=== PATIENT | male | born 1975 | race Caucasian/White ===

== ENCOUNTER 2020-05-26 09:23 | Outpatient (CLI) | payer OTHER, SELFPAY ==
--- NOTE | ~2020-05-26 | US_ITS ---
US abdomen complete DATE: 05/26/2020 10:27 INDICATION: Elevated serum enzyme levels TECHNIQUE: Real-time imaging and Doppler analysis of the abdomen COMPARISON: None FINDINGS: The pancreas is not optimally evaluated due to interference from overlying bowel gas. Consi reyna CT abdomen examination for more optimal pancreatic visualization. There is hepatic steatosis. No hepatic space-occupying mass lesion is evident. There is a hyperechoic shadowing filling defect of the neck of the gallbladder, measuring up to 2 cm approximate dimension. It is not mobile. There is borderline gallbladder wall thickening. No perichol ecystic abnormal fluid collection is evident. Negative sonographic Presley's sign. The common bile duct measures 4.5 mm, within normal range. The right kidney measures 10.3 cm length. The left kidney measures 10.9 cm length. No renal mass lesi on or hydronephrosis is evident. Spleen measures within normal limits for size, 12.5 cm length. Normal caliber of the abdominal aorta. Inferior vena cava is unremarkable. IMPRESSION: 2 cm gallstone fixed in position at gallbladder neck; borderline gallbladder wall thicken ing Reviewed, dictated and finalized at [facility]. Reviewed, dictated and finalized at location [facility]. IMPRESSION: 2 cm gallstone fixed in position at gallbladder neck; borderline ga llbladder wall thickening
== END 2020-05-26 09:24 | disposition home or self-care (01) ==
PROVIDERS: PCP Family Medicine; Visit Provider Nurse Practitioner
DX: R74.8 Abnormal levels of other serum enzymes (principal); K80.20 Calculus of gallbladder without cholecystitis without obstruction
CPT/HCPCS: 76700

== ENCOUNTER 2021-11-05 09:29 | Outpatient (CLI) | payer OTHER, SELFPAY | END 2021-11-05 09:30 | disposition home or self-care (01) | LOC: ANHGOSHLAB 09:31 | PROVIDERS: PCP Family Medicine; Visit Provider Nurse Practitioner | DX: E55.9 Vitamin D deficiency, unspecified (principal); E78.5 Hyperlipidemia, unspecified; I10 Essential (primary) hypertension | CPT/HCPCS: 36415 ==

== ENCOUNTER 2022-05-11 11:40 | Outpatient (CLI) | payer OTHER, SELFPAY ==
[2022-05-11 12:36] LABS: Basophils Absolute Auto 0.1 K/mm3 (0.0-0.1); Basophils Percent Auto 0.6 % (0.2-1.2); Eosinophils Absolute Auto 0.2 K/mm3 (0-0.3); Eosinophils Percent Auto 1.7 % (0-4.4); Hematocrit 49.1 % (42.0-52.0); Hemoglobin 16.9 g/dL (14.0-18.0); Immature Granulocyte Absolute 0.04 K/mm3 (0.00-0.031); Immature Granulocyte Percent A 0.4 % (0-0.5); Lymphocytes Absolute Auto 2.52 K/mm3 (0.9-3.2); Lymphocytes Percent Auto 24.4 % (18.3-44.2); Mean Corpuscular HGB Conc 34.4 g/dl (32-36); Mean Corpuscular Hemoglobin 31.2 pg (26-34); Mean Corpuscular Volume 90.6 fl (80-100); Mean Platelet Volume 10.5 fl (7.4-10.4); Monocytes Absolute Auto 0.6 K/mm3 (0.1-0.6); Monocytes Percent Auto 5.6 % (2.6-8.5); Neutrophils Absolute Auto 6.9 K/mm3 (1.3-6.7); Neutrophils Percent Auto 67.3 % (45.5-73.1); Platelet Count Result 284 k/mm3 (150-375); Red Blood Count 5.42 M/mm3 (4.6-6.20); White Blood Count 10.3 K/mm3 (4.5-10.0)
[2022-05-11 12:38] LABS: Alanine Aminotransferase 99 U/L (6-50); Albumin Level 4.7 g/dL (3.5-5.1); Alkaline Phosphatase 77 U/L (38-126); Anion Gap 6 mmol/L (8-16); Aspartate Amino Transferase 59 U/L (17-59); Blood Urea Nitrogen 15 mg/dL (9-20); Carbon Dioxide 31 mmol/L (22-30); Chloride 103 mmol/L (98-107); Cholesterol 219 mg/dL (0-200); Estimated Glomerular Filt Rate > 60; Glucose 98 mg/dL (65-110); HDL Direct 51 mg/dL; Sodium 140 mmol/L (137-145); Triglycerides 147 mg/dL (<150)
[2022-05-11 12:49] LABS: LDL Cholesterol Direct 116 mg/dL
== END 2022-05-11 11:41 | disposition home or self-care (01) ==
LOC: ANHGOSHLAB 11:41
PROVIDERS: PCP Family Medicine; Visit Provider Nurse Practitioner
DX: E78.5 Hyperlipidemia, unspecified (principal); I10 Essential (primary) hypertension
CPT/HCPCS: 36415; 80053; 80061; 85025

== ENCOUNTER 2022-09-16 02:13 | Observation (INO) | payer OTHER, SELFPAY ==
[2022-09-16] VITALS (17 sets, daily range): BP systolic 128–159; BP diastolic 85–110; PULSE 59–75; RESP 14–25; TEMP 36.2–36.4; O2SAT 95–100; BMI 28.0
--- NOTE | ~2022-09-16 | NM_ITS ---
EXAMINATION: NM hepatobiliary w pharm DATE: 09/16/2022 13:22 INDICATION: Right upper quadrant abdominal pain and cholelithiasis. COMPARISON: CT dated 09/16/2022 TECHNIQUE: 5.1 mCi Tc-99m mebrofenin (Choletec) was administered intravenously. Scintigraphic images of the abdomen were obtained for one hour. Additional 30 minutes of imaging was acquired following a dministration of 2 mg IV morphine. FINDINGS: There is normal clearance of radiotracer from the blood pool. There is homogeneous tracer uptake by t he liver. Activity progresses to the common bile duct by 15 minutes and into the small bowel by 20 m inutes. There is no evident activity within the gallbladder either prior to or in the 30 minutes foll owing morphine administration which would be consistent with acute cholecystitis. IMPRESSION: 1. No evident gallbladder activity either prior to or following morphine administration which could be consistent with acute cholecystitis. Reviewed, dictated and finalized at location [facility]. IMPRESSION: 1. No evident gallbladder activity either prior to or following morphine admin istration which could be consistent with acute cholecystitis.
--- NOTE | ~2022-09-16 | CT_ITS ---
CT of the Abdomen and Pelvis: Indication: Abdominal pain Technique: 2.5 mm axial scans were obtained through the abdomen and pelvis following intravenous adm inistration of 100 cc of Omnipaque 350. Dose reduction technique was used on this scan by utilizing a utomated exposure control and iterative reconstruction technique. The dose-length product (DLP) was 1 022.58 mGy-cm. Findings: Scans through the lung bases are unremarkable. The liver, spleen, pancreas, adrenals and kidneys are within normal limits. 3.2 cm calcified gallston e present. No evidence of aortic aneurysm. No lymphadenopathy. No bowel obstruction or bowel wall thickening. There is no evidence to suggest acute appendicitis. Images through the pelvis were performed. Urinary bladder unremarkable. Prostate gland and seminal ve sicles are unremarkable. No ascites. Impression: Cholelithiasis. Reviewed, dictated and finalized at location . Impression: Cholelithiasis.
[2022-09-16 02:44] LABS: Basophils Absolute Auto 0.1 K/mm3 (0.0-0.1); Basophils Percent Auto 0.8 % (0.2-1.2); Eosinophils Absolute Auto 0.1 K/mm3 (0-0.3); Eosinophils Percent Auto 1.5 % (0-4.4); Hematocrit 48.2 % (42.0-52.0); Hemoglobin 16.7 g/dL (14.0-18.0); Immature Granulocyte Absolute 0.04 K/mm3 (0.00-0.031); Immature Granulocyte Percent A 0.4 % (0-0.5); Lymphocytes Absolute Auto 2.58 K/mm3 (0.9-3.2); Lymphocytes Percent Auto 27.9 % (18.3-44.2); Mean Corpuscular HGB Conc 34.6 g/dl (32-36); Mean Corpuscular Hemoglobin 31.1 pg (26-34); Mean Corpuscular Volume 89.8 fl (80-100); Mean Platelet Volume 9.9 fl (7.4-10.4); Monocytes Absolute Auto 0.6 K/mm3 (0.1-0.6); Monocytes Percent Auto 6.2 % (2.6-8.5); Neutrophils Absolute Auto 5.8 K/mm3 (1.3-6.7); Neutrophils Percent Auto 63.2 % (45.5-73.1); Platelet Count Result 284 k/mm3 (150-375); Red Blood Count 5.37 M/mm3 (4.6-6.20); Red Cell Distribution Width 11.9 % (11.5-14.5); White Blood Count 9.2 K/mm3 (4.5-10.0)
[2022-09-16 02:55] LABS: Alanine Aminotransferase 92 U/L (6-50); Albumin Level 4.7 g/dL (3.5-5.1); Alkaline Phosphatase 80 U/L (38-126); Anion Gap 12 mmol/L (8-16); Aspartate Amino Transferase 42 U/L (17-59); Bilirubin,Total 0.4 mg/dL (0.2-1.3); Blood Urea Nitrogen 12 mg/dL (9-20); Calcium 9.5 mg/dL (8.4-10.2); Carbon Dioxide 25 mmol/L (22-30); Chloride 103 mmol/L (98-107); Estimated CRCL calculation 78 ml/min; Estimated Glomerular Filt Rate > 60; Glucose 151 mg/dL (65-110); Lipase 114 U/L (23-300); Potassium 3.5 mmol/L (3.4-5.0); Sodium 140 mmol/L (137-145)
[2022-09-16] MEDS: ONDANSETRON INJ 4 MG/2 ML VIAL IV PUSH (04:23)
[2022-09-16] MEDS: MORPHINE SULFATE (*CRX) 4 MG/ML INJ IV PUSH (04:24)
[2022-09-16] MEDS: FAMOTIDINE 20 MG/2 ML VIAL IV PUSH ×2 (04:26→08:30)
[2022-09-16 04:37] LABS: Appearance Urine Clear (Clear); Bilirubin Urine Negative (Negative); Blood Urine Negative (Negative); Color Urine Yellow (Yellow); Glucose Urine UA Negative (Negative); Ketones Urine Negative (Negative); Leukocyte Esterase Ur Negative LEU/UL (Negative); Nitrate Urine Negative (Negative); Protein Urine Negative (Negative); Urobilinogen Urine 0.2 mg/dL (<2.0)
--- NOTE | 2022-09-16 04:46 | ED.ABDPAIN ---
HPI - Abdominal Pain General Chief Complaint: Abdominal Pain Stated Complaint: abd pain Time Seen by Provider: 09/16/22 02:25 History of Present Illness HPI narrative: 47-year-old male with history of gallbladder issues presents with pain in his right upper quadrant, nausea vomiting, he states that he he had accidentally eaten 2 meals tonight Related Data Allergies Allergy/AdvReac Type Severity Reaction Status Date / Time No Known Allergies Allergy Verified 05/11/22 11:10 Review of Systems Review of Systems: CONST: No fever. HEENT: No sore throat C/V: No chest pain RESP: No cough GI: Reports abdominal pain, nausea, vomiting : No dysuria. M/S: No joint pain. SKIN: No rash. NEURO: [No headache or focal numbness or weakness] PSYCH: [No depression] [facility] Past Medical History Medical History Essential (primary) hypertension Gallstones GERD (gastroesophageal reflux disease) Low vitamin D level Surgical History Surgical History History of hernia surgery umblical hernia repair 2017 History of tonsillectomy and adenoidectomy History of vasectomy [place] teeth extracted Family History Family History Father Hypertension Sibling Hypertension Social History Social History Smoking packs per day: 0.5 Smoking cigarettes per day: 10.0 Smoking status: Current every day smoker Tobacco type: cigarettes Second hand tobacco smoke exposure: No Alcohol intake: current Drinks per week: 50 Alcohol use details: 25 beers weekly Substance use: current Substance use type: marijuana Lack of Transportation: No Lack of Food: Never True Current Housing: I Have Housing Concerned About Future Housing: No Difficulty Paying Gas/Electric Bills: No Difficulty Paying for Meds: No Currently Unemployed: No Education: High School Diploma/GED Difficulty w/ Childcare or Family Care: No Living arrangements: with roommate(s) Occupation/Education: occupation 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 EYES: EOMI, conjunctiva normal ENT: Hearing grossly intact LUNGS: Nonlabored breathing. HEART: [Regular rate and rhythm] ABD: [Soft], [tender to palpation] right upper quad EXT: Normal range of motion SKIN: [No rashes or lesions.] NEURO: [Alert and oriented x 3. No gross focal sensory or strength deficits.] PSYCH: Normal affect Course Vital Signs Vital signs: Vital Signs Temperature 97.1 F L 09/16/22 02:15 Pulse Rate 69 09/16/22 02:15 Respiratory Rate 16 09/16/22 02:15 Blood Pressure 148/90 H 09/16/22 02:15 Pulse Oximetry 100 09/16/22 02:15 Oxygen Delivery Room Air 09/16/22 02:15 Temperature 97.3 F L 09/16/22 05:54 Pulse Rate 64 09/16/22 05:54 Respiratory Rate 20 09/16/22 05:54 Blood Pressure 140/106 H 09/16/22 05:54 Pulse Oximetry 96 09/16/22 05:54 Oxygen Delivery Room Air 09/16/22 02:15 MDM - Abdominal Pain MDM Narrative Medical decision making narrative: Electronic medical record was reviewed. Patient presented to the ED with complaint of [abdominal pain and vomiting]. Vitals [were within acceptable limits]. Physical exam revealed tenderness to palpation right upper quadrant. Based on the patient's history and physical exam, my differential includes but is not limited to [gastritis, gastroenteritis, cholecystitis, pancreatitis]. [IV access was established by nursing staff. Patient was given zofran, morphine, famotidine]. CBC, BMP, lipase, LFTs, bilirubin and alk phos were obtained. Labs were pertin
[2022-09-16 04:58] LABS: Add Urine Microscopic? NO
--- NOTE | 2022-09-16 05:51 | ADMGEN ---
This patient, Hugo Del Rio, was admitted to Medical Room 250-01. Patient/family oriented to hospital policies and general routines including ID bracelet, bed and alarms, visiting hours, pain management, procedures, bathroom and other care routines, personal items, smoking policy, room service/diet, and visiting hours. Information on how to activate the Rapid Response Team has been discussed. Patient/Family are encouraged to report perceived risks to care and to ask questions if they do not understand what they are told or what they should do.
--- NOTE | 2022-09-16 07:29 | PM.IMHP ---
H&P: HPI History of Present Illness Date/Time: 09/16/22 07:29 Chief Complaint: Abdominal pain Narrative: This is a 47-year-old male with a past medical history of hypertension and EtOH abuse. He presented to [place] [facility] last night with complaints of abdominal pain located to his right upper quadrant. 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 Around 3:00 p.m. he ate some tacos and then when his came home at 5 she woke him up and he ate another meal. Shortly after that he started feeling bloated and like he ate too much food. He admits he was still intoxicated at this point. Around 10:00 p.m. he started to have right upper quadrant pain which radiated to his back. The pain progressively became worse and he became nauseous. He tried to take some ibuprofen but that did not help. Finally around 2:00 a.m. he decided to come to the ER. He says that he has had multiple episodes like this before but never this bad. These episodes happen about once a year and he even saw a Dr. Surya Reeves within the last year for potential outpatient cholecystectomy. His CT abdomen and pelvis in the ER shows cholelithiasis. A HIDA scan has been ordered for today 11. His labs are mostly unremarkable with a mild elevation of his ALT at 92. Lipase was normal 114. He reports that he drinks at least 9 beers a day, probably more. He states that he does notice tremors when he has not had a drink drink for a while. He is a 30 year, half a pack-a-day smoker and occasionally takes edibles. During his assessment he appears comfortable in bed. He states that his pain is much better than when he initially presented to the ER. He no longer appears to be intoxicated. He answers questions appropriately. He says that his pain was right upper quadrant is just a mild tenderness at this point, and no Presley sign present. He has been NPO and denies nausea. Will proceed with HIDA scan and general surgery consult. Anticipate outpatient follow-up with surgery for lap cholecystectomy. Review of Systems Review of Systems: All systems reviewed & are unremarkable except as noted in HPI and below PMFSH Past Medical History Medical History Essential (primary) hypertension Gallstones GERD (gastroesophageal reflux disease) Low vitamin D level Surgical History Surgical History History of hernia surgery umblical hernia repair 2017 History of tonsillectomy and adenoidectomy History of vasectomy [place] teeth extracted Family History Family History Father Hypertension Sibling Hypertension Social History Social History (Updated 09/16/22 @ 10:41 by Clementina Lentz APRN) Smoking packs per day: 0.5 Smoking cigarettes per day: 10.0 Smoking status: Current every day smoker Tobacco type: cigarettes Second hand tobacco smoke exposure: No Alcohol intake: current Drinks per week: 63 Alcohol use details: 9 beers a day, probably more per patient Substance use: current Substance use type: marijuana Other substance usage details: weekly edibles Lack of Transportation: No Lack of Food: Never True Current Housing: I Have Housing Concerned About Future Housing: No Difficulty Paying Gas/Electric Bills: No Difficulty Paying for Meds: No Currently Unemployed: No Education: High School Diploma/GED Difficulty w/ Childcare or Family Care: No Living arrangements: with family Occupation/Education: occupation 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
[2022-09-16] MEDS: hydroCHLOROthiazide 12.5 MG CAPSULE PO (08:30)
[2022-09-16] MEDS: amLODIPine BESYLATE 5 MG TABLET 10 MG PO (08:30)
[2022-09-16] MEDS: LACTATED RINGERS 1,000 ML 75 ML IV CONT (08:36)
[2022-09-16] MEDS: MORPHINE SULFATE (*CRX) 2 MG/ML INJ IV PUSH (12:49)
[2022-09-16 13:36] LABS: Glucose Point of Care 108 mg/dl (65-105)
[2022-09-16 18:07] LABS: Glucose Point of Care 95 mg/dl (65-105)
--- NOTE | 2022-09-18 06:47 | PM.DS ---
DS: Admitting Diagnosis Discharge Date 09/16/22 Admitting Diagnosis abdominal pain DS: Discharge Diagnosis Discharge Diagnosis (1) Abdominal pain, RUQ: Code(s): R10.11 - Right upper quadrant pain Status: Acute Assessment and Plan: -Likely related to cholelithiasis, also a heavy drinker although lipase was normal -mildly elevated liver enzymes -await HIDA scan results -IVF -NPO -Prn pain medications -Advance diet when appropriate (2) Essential (primary) hypertension: Code(s): I10 - Essential (primary) hypertension Status: Acute Assessment and Plan: Stable on home medications -Will restart now -Blood pressures reviewed and are stable (3) GERD (gastroesophageal reflux disease): Qualifiers: Esophagitis presence: without esophagitis Qualified Code(s): K21.9 - Gastro-esophageal reflux disease without esophagitis Code(s): K21.9 - Gastro-esophageal reflux disease without esophagitis Status: Acute Assessment and Plan: On Rapeprazole 20 mg daily at home -Placed on pepcid IVP BID (4) Alcohol abuse: Code(s): F10.10 - Alcohol abuse, uncomplicated Status: Acute Assessment and Plan: Approximately 9-12 beers per day. Reports of tremors with cessation. -CIWA with prn Ativan and Librium -Counseled on cessation -Folic acid and B1 replacement ordered -care coordination consult Plan -await results from HIDA scan -may consult surgery depending on results, otherwise will schedule outpatient follow up for lap luiz -NPO, IVF, may trial diet later this afternoon -CIWA DS: Summary Hospital Course Hospital Course: Narrative: This is a 47-year-old male with a past medical history of hypertension and EtOH abuse.? He presented to [place] ER last night with complaints of abdominal pain located to his right upper quadrant.? 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 Around 3:00 p.m. he ate some tacos and then when his came home at 5 she woke him up and he ate another meal.? Shortly after that he started feeling bloated and like he ate too much food.? He admits he was still intoxicated at this point.? Around 10:00 p.m. he started to have right upper quadrant pain which radiated to his back.? The pain progressively became worse and he became nauseous.? He tried to take some ibuprofen but that did not help.? Finally around 2:00 a.m. he decided to come to the ER.? He says that he has had multiple episodes like this before but never this bad.? These episodes happen about once a year and he even saw a Dr. Surya Reeves within the last year for potential outpatient cholecystectomy.? His CT abdomen and pelvis in the ER shows cholelithiasis.? A HIDA scan has been ordered for today 11.? His labs are mostly unremarkable with a mild elevation of his ALT at 92.? Lipase was normal 114.? He reports that he drinks at least 9 beers a day, probably more.? He states that he does notice tremors when he has not had a drink drink for a while.? He is a 29 year, half a pack-a-day smoker and occasionally takes edibles. During his assessment he appears comfortable in bed.? He states that his pain is much better than when he initially presented to the ER.? He no longer appears to be intoxicated.? He answers questions appropriately.? He says that his pain was right upper quadrant is just a mild tenderness at this point, and no Presley sign present.? He has been NPO and denies nausea.? Will proceed with HIDA scan and general surgery consult.? Anticipate outpatient follow-up with surgery for lap cholecystectomy. Time Spent with Patient Time attestation: Total time spent providing and/or coordinating discharge services:32 Exam Narrative: General: well-nourished, well-appearing 47-year-old male, sitting up in bed, comfortable, NARD Neuro: awake, alert and oriented x4, speech c
== END 2022-09-16 18:40 | disposition home or self-care (01) ==
LOC: ANHED 02:36 → ANH2MED 05:22
PROVIDERS: Admitting Provider Internal Medicine; Emergency Provider Emergency Medicine; PCP Family Medicine; Visit Provider Internal Medicine
DX: R10.11 Right upper quadrant pain (principal); I10 Essential (primary) hypertension; K21.9 Gastro-esophageal reflux disease without esophagitis; F17.210 Nicotine dependence, cigarettes, uncomplicated; F12.90 Cannabis use, unspecified, uncomplicated; F10.10 Alcohol abuse, uncomplicated; Z79.899 Other long term (current) drug therapy
CPT/HCPCS: 36415; 74177; 78227; 80053; 81003; 82948; 83690; 85025; 96361; 96374; 96375; 96376; 99285; A9270; A9537; G0378; J2270; J2405; J7120; Q9967

== ENCOUNTER 2022-10-27 08:36 | Outpatient (CLI) | payer OTHER, SELFPAY ==
--- NOTE | 2022-10-27 08:30 | ECG_ITS ---
Measurements Intervals [place] Rate: 83 P: 20 AK: 167 QRS: 45 QRSD: 117 T: 46 QT: 372 QTc: 438 Interpretive Statements SINUS RHYTHM INCOMPLETE RIGHT BUNDLE BRANCH BLOCK CONSIDER INFERIOR INFARCT, AGE INDETERMINATE BASELINE ARTIFACT- I, III, AVR, AVL, AVF ABNORMAL ECG NO PREVIOUS ECG AVAILABLE FOR COMPARISON Electronically Signed On 10-27-2022 9:17:30 CDT by J Luis Cottrell D.O.
[2022-10-27 10:08] LABS: Amylase 52 U/L (30-110)
== END 2022-10-27 08:37 | disposition home or self-care (01) ==
LOC: ANHSURGERY 08:39
PROVIDERS: PCP Family Medicine; Visit Provider Surgery
DX: K80.10 Calculus of gallbladder with chronic cholecystitis without obstruction (principal); I10 Essential (primary) hypertension; Z01.818 Encounter for other preprocedural examination; I45.10 Unspecified right bundle-branch block
CPT/HCPCS: 36415; 82150; 86850; 86900; 86901; 93005

== ENCOUNTER 2023-01-22 08:47 | Outpatient (CLI) | payer OTHER, SELFPAY ==
[2023-01-22 09:26] LABS: Alanine Aminotransferase 116 U/L (6-50); Albumin Level 4.5 g/dL (3.5-5.1); Alkaline Phosphatase 66 U/L (38-126); Amylase 50 U/L (30-110); Anion Gap 9 mmol/L (8-16); Aspartate Amino Transferase 52 U/L (17-59); Bilirubin,Total 0.7 mg/dL (0.2-1.3); Blood Urea Nitrogen 20 mg/dL (9-20); Calcium 9.5 mg/dL (8.4-10.2); Carbon Dioxide 25 mmol/L (22-30); Chloride 104 mmol/L (98-107); Estimated Glomerular Filt Rate > 60; Glucose 101 mg/dL (65-110); Lipase 95 U/L (23-300); Potassium 3.9 mmol/L (3.4-5.0); Sodium 138 mmol/L (137-145)
== END 2023-01-22 08:48 | disposition home or self-care (01) ==
PROVIDERS: PCP Family Medicine; Visit Provider Surgery
DX: K80.10 Calculus of gallbladder with chronic cholecystitis without obstruction (principal); Z01.818 Encounter for other preprocedural examination
CPT/HCPCS: 36415; 80048; 80076; 82150; 83690; 86850; 86900; 86901

== ENCOUNTER 2023-01-25 01:39 | Day surgery (SDC) | payer OTHER, SELFPAY ==
[2022-10-23 10:12] VITALS: BMI 28.2
--- NOTE | 2022-10-23 10:15 | PC.NURSE ---
Report to the Outpatient Waiting Room, entrance under the green pavilion located off [facility], at time 10:00 on date 11/02/22. Planned Procedure Time: 12:30. Time changes happen often and if your time is changed the preop area will call you the afternoon before. - You and your visitor will be asked to self-screen and do not enter if you have any COVID symptoms. - A mask is optional within the hospital at this time. Patients may have clear liquids (water, carbonated beverages, clear teas, apple juice) until 3 hours prior to surgery (9:00) with a maximum of 20 ounces. - No food from midnight until time of surgery Take the following medications with a SIP of water the morning of surgery: AMLODIPINE DO NOT STOP ANY OF YOUR OTHER PRESCRIPTION MEDICATIONS PRIOR TO SURGERY ?EXCEPT THE FOLLOWING Medications to discontinue per physician: N/A Date to take last dose: N/A Please no make-up, nail guyanese, hairspray, perfume, deodorant, or body powder the day of surgery. No jewelry (including any body piercings) or valuables the day of surgery, leave them at home. Please take a shower or bath the night before, or the morning of, surgery with an antibacterial soap (HIBICLENS). Wear comfortable, loose fitting clothing. - Jewelry must be removed prior to entering the operating room. Rings and piercings that are not removed may be cut off. - The hospital will not accept responsibility for valuables. - Please leave all valuables, including medications, at home the day of surgery. If you are going home after surgery, a licensed armored truck driver must drive you home. - NO public transportation without another adult if you receive anesthesia. - We recommend that an adult stay with you for 24 hours following discharge. - We also recommend that you do not drive, make important decision, drink alcoholic beverages, or take any drugs that were not prescribed by your health care provider for at least 24 hours after your discharge time. Follow any additional instructions given to you from your surgeon. If you or anyone in your household have experienced Covid symptoms in the past week, please notify your surgeon or the nurse liaison at the phone number below for possible testing. Telephone instructions given to PT - MARIBEL XAVIER and asked if any additional questions and then verbalized understanding. Patient advised to call surgeon office or pre surgery nurse liaison [phone] if any additional questions.
[2023-01-20 17:05] VITALS: BMI 28.2
--- NOTE | 2023-01-20 17:42 | SUR.PREOP ---
Report to the Outpatient Waiting Room, entrance under the green pavilion located off [facility], at time _1000__ on date _01/25/23_. Planned Procedure Time: _1200__. Time changes happen often and if your time is changed the preop area will call you the afternoon before. - You and your visitor will be asked to self-screen and do not enter if you have any COVID symptoms. - A mask is optional within the hospital at this time. Patients may have clear liquids (water, carbonated beverages, clear teas, apple juice) until 3 hours prior to surgery with a maximum of 20 ounces. - No food from midnight until time of surgery - Infants may have breast milk until 4 hours before surgery, formula 6 hours prior to surgery. - Children will be allowed to drink immediately following surgery. If applicable, please bring a bottle or sippy cup to assist with drinking. Juice, water, soda, and popsicles are readily available. For infants on formula, please bring formula the day of surgery. Pacifiers are allowed. Take the following medications with a SIP of water the morning of surgery: ____PT TAKES ALL HOME MEDS IN EVENING DO NOT STOP ANY OF YOUR OTHER PRESCRIPTION MEDICATIONS PRIOR TO SURGERY ?EXCEPT THE FOLLOWING Medications to discontinue per physician Date to take last dose Please no make-up, nail turkish, hairspray, perfume, deodorant, or body powder the day of surgery. No jewelry (including any body piercings) or valuables the day of surgery, leave them at home. Please take a shower or bath the night before, or the morning of, surgery with an antibacterial soap. Wear comfortable, loose fitting clothing. Children are encouraged to wear pajamas. - Jewelry must be removed prior to entering the operating room. Rings and piercings that are not removed may be cut off. - The hospital will not accept responsibility for valuables. - Please leave all valuables, including medications, at home the day of surgery. If you are going home after surgery, a licensed seasonal driver must drive you home. - NO public transportation without another adult if you receive anesthesia. - We recommend that an adult stay with you for 24 hours following discharge. - We also recommend that you do not drive, make important decision, drink alcoholic beverages, or take any drugs that were not prescribed by your health care provider for at least 24 hours after your discharge time. For Pediatric surgeries, we recommend two adults accompany the child home. Follow any additional instructions given to you from your surgeon. If you or anyone in your household have experienced Covid symptoms in the past week, please notify your surgeon or the nurse liaison at the phone number below for possible testing. Telephone instructions given to __PATIENT__and asked if any additional questions and then verbalized understanding. Patient advised to call surgeon office or pre surgery nurse liaison [phone] if any additional questions.
[2023-01-25] VITALS (8 sets, daily range): BP systolic 124–148; BP diastolic 87–95; PULSE 62–81; RESP 12–17; TEMP 36.2–36.7; O2SAT 94–100
[2023-01-25] MEDS: ACETAMINOPHEN 500 MG TABLET 1000 MG PO (10:02)
[2023-01-25] MEDS: LACTATED RINGERS 1,000 ML 30 ML IV CONT ×2 (10:33→13:06)
[2023-01-25] MEDS: KETOROLAC 15 MG/ML VIAL (*BKC) IV PUSH (10:34)
--- NOTE | 2023-01-25 10:50 | WPDANESEPPF ---
Anes - Initial Pre Proc Eval Procedure: Operation Date: 01/25/23 12:00 Proposed Procedures p Laparoscopic Cholecystectomy - Maryann Tovar MD Date/Time: 01/25/23 10:50 Surgeon: Maryann Tovar MD Pre Op Diagnosis: Cholecystitis with Stones Patient Data Age: 47 Gender: M Height: 1.88 m Weight: 98.5 kg Last Vital Signs Temp 36.7 C 01/25/23 10:10 Pulse 81 01/25/23 10:10 Resp 16 01/25/23 10:10 BP 127/91 H 01/25/23 10:10 Pulse Ox 97 01/25/23 10:10 O2 Del Method Room Air 01/25/23 10:10 Allergies Allergy/AdvReac Type Severity Reaction Status Date / Time No Known Allergies Allergy Verified 01/25/23 10:00 Home Medications Medication Instructions Recorded Confirmed Type hydrochlorothiazide 12.5 mg tablet 12.5 mg PO DAILY #90 tabs 11/13/22 01/20/23 Rx losartan 50 mg tablet 50 mg PO DAILY #90 tabs 11/16/22 01/20/23 Rx rabeprazole 20 mg tablet,delayed 20 mg PO DAILY 11/16/22 01/20/23 History release Patient hx anesthesia problems: none Family hx anesthesia problems: none Results Review: All pre-operative results and documents have been reviewed as part of the pre-operative evaluation. [facility] Past Medical History Medical History Essential (primary) hypertension Gallstones GERD (gastroesophageal reflux disease) Low vitamin D level Obesity Smoker Surgical History Surgical History History of hernia surgery umblical hernia repair 2017 History of tonsillectomy and adenoidectomy History of vasectomy [place] teeth extracted Family History Family History Father Hypertension Sibling Hypertension Social History Social History Smoking packs per day: 0.5 Smoking cigarettes per day: 10.0 Years smoked: 30 Smoking pack-years: 15.00 Smoking status: Current every day smoker Tobacco type: cigarettes Second hand tobacco smoke exposure: No Alcohol intake: current Drinks per week: 50 Alcohol use details: BEER Substance use: never Substance use type: does not use Other substance usage details: weekly edibles Lack of Transportation: No Lack of Food: Never True Current Housing: I Have Housing Concerned About Future Housing: No Difficulty Paying Gas/Electric Bills: No Difficulty Paying for Meds: No Currently Unemployed: No Education: High School Diploma/GED Difficulty w/ Childcare or Family Care: No Living arrangements: with family Occupation/Education: occupation 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 Informed Consent: The patient's anesthetic plan and its attendant risks and benefits were discussed with the patient/family/POA. Questions were solicited and answers provided to the satisfaction of the patient/family/POA.
--- NOTE | 2023-01-25 12:04 | PM.IMHP ---
H&P: HPI History of Present Illness Date/Time: 01/25/23 12:04 Chief Complaint: cholecystitis, cholelithiasis Narrative: Mr. Del Rio presents to the office for evaluation.? He was recently in [facility] on 09/16/2022 with severe RUQ abdominal pain.? He was admitted for further work-up.? CT scan showed a 3.2cm gallstone within the gallbladder. HIDA scan was also done and showed no evident gallbladder activity either prior to or following morphine administration which could be consistent with acute cholecystitis. He has notable hx of ETOH abuse.? In 2020, after routine labs showed elevated LFTs, he underwent abdominal ultrasound.? Imaging showed?2 cm gallstone fixed in position at gallbladder neck; borderline gallbladder wall thickening.? He states he was asymptomatic at the time so deferred further work-up. Review of Systems Review of Systems: All systems reviewed & are unremarkable except as noted in HPI and below PMFSH Past Medical History Medical History Essential (primary) hypertension Gallstones GERD (gastroesophageal reflux disease) Low vitamin D level Obesity Smoker Surgical History Surgical History History of hernia surgery umblical hernia repair 2017 History of tonsillectomy and adenoidectomy History of vasectomy [place] teeth extracted Family History Family History Father Hypertension Sibling Hypertension Social History Social History Smoking packs per day: 0.5 Smoking cigarettes per day: 10.0 Years smoked: 30 Smoking pack-years: 15.00 Smoking status: Current every day smoker Tobacco type: cigarettes Second hand tobacco smoke exposure: No Alcohol intake: current Drinks per week: 50 Alcohol use details: BEER Substance use: never Substance use type: does not use Other substance usage details: weekly edibles Lack of Transportation: No Lack of Food: Never True Current Housing: I Have Housing Concerned About Future Housing: No Difficulty Paying Gas/Electric Bills: No Difficulty Paying for Meds: No Currently Unemployed: No Education: High School Diploma/GED Difficulty w/ Childcare or Family Care: No Living arrangements: with family Occupation/Education: occupation 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 Gender identity (if verbalized by the patient): Male Spiritual care concerns: No Agree to blood products: Yes Meds Home Medications and Allergies Home Medications Medication Instructions Recorded Confirmed Type hydrochlorothiazide 12.5 mg tablet 12.5 mg PO DAILY #90 tabs 11/13/22 01/20/23 Rx losartan 50 mg tablet 50 mg PO DAILY #90 tabs 11/16/22 01/20/23 Rx rabeprazole 20 mg tablet,delayed 20 mg PO DAILY 11/16/22 01/20/23 History release Allergies Allergy/AdvReac Type Severity Reaction Status Date / Time No Known Allergies Allergy Verified 01/25/23 10:00 Vital Signs Vital Signs - 24 hr 01/25/23 10:10 Temperature 36.7 C Pulse Rate 81 Respiratory Rate 16 Blood Pressure 127/91 H Pulse Oximetry 97 Oxygen Delivery Room Air Exam Const: General: cooperative, comfortable and no acute distress Resp: Auscultation: clear to auscultation bilaterally Cardio: Rate: regular rate Rhythm: regular rhythm GI: Inspection: normal to inspection and distended GI Palp: Yes abdominal tenderness, Yes Soft to palpation and Yes Tenderness to palpation present (GI) Assessment and Plan Assessment and plan (1) Chronic cholecystitis with calculus: Code(s): K80.10 - Calculus of gallbladder with chronic cholecystitis without obstruction Status: Acute Assessment and Plan: OR for cholecystectomy
--- NOTE | 2023-01-25 12:05 | WPDHPUPDATE1 ---
History and Physical Update Update Date/Time: 01/25/23 12:05 History and Physical has been reviewed, including an updated exam of the patient. There are NO changes in the patient's condition. Risks, benefits, and alternatives have been discussed and questions answered. Patient agrees to proceed with procedure.
[2023-01-25] MEDS: ceFAZolin 2 GM/D5W 50 ML 2 GM/50 ML BAG IVPB (12:09)
[2023-01-25] MEDS: BUPIVACAINE/EPINEPHRINE 0.5% 50 ML VIAL 30 ML INFILTRATE (12:28)
--- NOTE | 2023-01-25 13:20 | W.PM.PROC2 ---
Procedure Note - Detailed Date of Procedure 01/25/23 Pre-op Diagnosis Cholecystitis with cholelithiasis Post-op Diagnosis Same Procedure Performed Laparoscopic cholecystectomy Surgeon Maryann Tovar MD Anesthesia General Indications 47-year-old male presenting to the office with complaints of right upper quadrant abdominal pain, nausea, bloating. Workup, including imaging, significant for chronic cholecystitis, cholelithiasis. Findings Cholecystitis with cholelithiasis Description of Procedure The patient was taken to the operating room placed in the supine position. After adequate induction of general anesthesia, the patient was prepped and draped in normal sterile fashion. A time-out was then performed to verify the patient's identity as well as the procedure being performed. I then made a 5 mm incision in the infraumbilical region. Through this, a Veress needle was placed into the peritoneal cavity and CO2 gas was then insufflated. After adequate pneumoperitoneum was achieved, the Veress needle was removed and a 5 mm optiview trocar was placed through this incision under direct visualization. I then placed the laparoscope through this trocar site and under direct visualization placed a further 12 mm subxiphoid port as well as 2 additional 5 mm ports in the right upper abdomen. Of note, the patient had previous umbilical hernia repair with mesh and some adhesions around the periumbilical area. I was able to work around this by placing the infraumbilical port lower than usual. The gallbladder was then identified and was noted to be inflamed, distended, and full of gallstones. I was able to place a grasper at the dome of the gallbladder and this was retracted anterior and cephalad up over the liver. A 2nd retractor was then placed at the infundibulum and retracted laterally, this allowed visualization of the triangle of Calot. The dissection was somewhat difficult secondary to an impacted stone near the neck the gallbladder. I then was able to visualize the cystic duct in its entirety from its proximal insertion into the gallbladder, to its distal junction with the common hepatic/common bile duct junction. At this point, I carefully skeletonized the proximal cystic duct with the [place] dissector. I then clipped and transected the proximal cystic duct. Next I visualized the cystic artery. Again the artery was skeletonized, clipped, and transected. I then used the Bovie cautery to take down the peritoneal attachments of the gallbladder off the liver bed. This was somewhat difficult given the amount of inflammation in the posterior space. Once the gallbladder specimen was completely detached, an endo-pouch was placed through the 12 mm port site. I then placed the gallbladder specimen into the Endo pouch and removed the endo-pouch from the 12 mm port site. The specimen will now be sent to pathology for further review. I then copiously irrigated the right upper quadrant. Some mild oozing was noted in the liver bed and this was controlled with the bovie cautery. Hemostasis was noted in the liver bed, the clips were noted to be in good position on both the cystic duct stump and the cystic artery stump. No other pathology was noted in the right upper quadrant. I then moved the laparoscope to the subxiphoid port. No iatrogenic injury or other pathology was noted in the lower abdomen. I then closed the 12 mm trocar site under direct visualization using the Antony cone and 0 Vicryl suture. At this point, the abdomen was desufflated and all ports removed. All port sites were then closed with 4.O Monocryl subcuticular sutures. Dermabond was placed on each incision. The patient tolerated the procedure well, was extubated in the operating room postoperative and will be transferred to the recovery room in stable condition Estimated Blood Loss 10 Drains No Packing No Pathology Yes Complications No immediate complications Condition Stable D
--- NOTE | 2023-01-25 13:28 | SUR.PHASEI ---
1328: Simple mask removed.
[2023-01-25] MEDS: oxyCODONE HCL (*CRX) 5 MG TAB IR PO (14:18)
== END 2023-01-25 14:45 | disposition home or self-care (01) ==
PROVIDERS: PCP Family Medicine; Visit Provider Surgery
PROC: 0FT44ZZ Resection of Gallbladder, Percutaneous Endoscopic Approach (ICD-10-PCS; CPT 47562; principal; 2023-01-25 12:00)
DX: K80.10 Calculus of gallbladder with chronic cholecystitis without obstruction (principal); I10 Essential (primary) hypertension; K21.9 Gastro-esophageal reflux disease without esophagitis; F17.210 Nicotine dependence, cigarettes, uncomplicated
CPT/HCPCS: 47562; 36415; 80048; 80076; 82150; 83690; 86850; 86900; 86901; 88304; A9270; J0330; J0690; J1100; J1170; J1885; J2250; J2405; J2704; J3010; J7120

== ENCOUNTER 2023-05-17 07:51 | Outpatient (CLI) | payer OTHER, SELFPAY ==
[2023-05-17 21:56] LABS: Alanine Aminotransferase 112 U/L (6-50); Albumin Level 4.3 g/dL (3.5-5.1); Alkaline Phosphatase 62 U/L (38-126); Anion Gap 7 mmol/L (4-12); Aspartate Amino Transferase 55 U/L (17-59); Bilirubin,Total 0.4 mg/dL (0.2-1.3); Blood Urea Nitrogen 17 mg/dL (9-20); Calcium 9.4 mg/dL (8.4-10.2); Carbon Dioxide 27 mmol/L (22-30); Chloride 106 mmol/L (98-107); Cholesterol 171 mg/dL (0-200); Estimated Glomerular Filt Rate > 60; Glucose 88 mg/dL (65-110); HDL Direct 45 mg/dL; Potassium 3.6 mmol/L (3.4-5.0); Sodium 140 mmol/L (137-145); Triglycerides 152 mg/dL (<150)
[2023-05-17 22:07] LABS: LDL Cholesterol Direct 101 mg/dL
[2023-05-20 14:20] LABS: Vitamin D 1,25 (OH)2 Total 24 pg/mL (18-72); Vitamin D2 1,25 (OH)2 <8 pg/mL; Vitamin D3 1,25 (OH)2 24 pg/mL
[2023-05-20 19:31] LABS: PSA, Free 0.23 ng/mL; PSA, Total 1.2 ng/mL (<=4.0)
== END 2023-05-17 07:52 | disposition home or self-care (01) ==
LOC: ANHGOSHLAB 07:53
PROVIDERS: PCP Family Medicine; Visit Provider Nurse Practitioner Family
DX: Z00.00 Encounter for general adult medical examination without abnormal findings (principal); Z12.5 Encounter for screening for malignant neoplasm of prostate; I10 Essential (primary) hypertension; E55.9 Vitamin D deficiency, unspecified
CPT/HCPCS: 36415; 80053; 80061; 82652; 84153; 84154; 84443

== ENCOUNTER 2023-11-15 08:25 | Outpatient (CLI) | payer OTHER, SELFPAY ==
[2023-11-15 12:57] LABS: Basophils Absolute Auto 0.1 K/mm3 (0.0-0.1); Basophils Percent Auto 0.9 % (0.2-1.2); Eosinophils Absolute Auto 0.3 K/mm3 (0-0.3); Eosinophils Percent Auto 2.8 % (0-4.4); Hematocrit 53.9 % (42.0-52.0); Hemoglobin 17.9 g/dL (14.0-18.0); Immature Granulocyte Absolute 0.05 K/mm3 (0.00-0.031); Immature Granulocyte Percent A 0.5 % (0-0.5); Lymphocytes Absolute Auto 3.83 K/mm3 (0.9-3.2); Lymphocytes Percent Auto 35.1 % (18.3-44.2); Mean Corpuscular HGB Conc 33.2 g/dl (32-36); Mean Corpuscular Hemoglobin 32.4 pg (26-34); Mean Corpuscular Volume 97.6 fl (80-100); Mean Platelet Volume 11.4 fl (7.4-10.4); Monocytes Absolute Auto 0.6 K/mm3 (0.1-0.6); Monocytes Percent Auto 5.7 % (2.6-8.5); Platelet Count Result 269 k/mm3 (150-375); Red Blood Count 5.52 M/mm3 (4.6-6.20); Red Cell Distribution Width 12.2 % (11.5-14.5); White Blood Count 10.9 K/mm3 (4.5-10.0)
[2023-11-15 13:42] LABS: Alanine Aminotransferase 220 U/L (6-50); Albumin Level 4.7 g/dL (3.5-5.1); Alkaline Phosphatase 55 U/L (38-126); Anion Gap 8 mmol/L (4-12); Aspartate Amino Transferase 143 U/L (17-59); Bilirubin,Total 1.3 mg/dL (0.2-1.3); Blood Urea Nitrogen 18 mg/dL (9-20); Calcium 9.5 mg/dL (8.4-10.2); Carbon Dioxide 29 mmol/L (22-30); Chloride 101 mmol/L (98-107); Cholesterol 218 mg/dL (0-200); Estimated Glomerular Filt Rate > 60; Glucose 79 mg/dL (65-110); HDL Direct 61 mg/dL; Potassium 3.8 mmol/L (3.4-5.0); Sodium 138 mmol/L (137-145); Triglycerides 135 mg/dL (<150)
[2023-11-15 13:59] LABS: LDL Cholesterol Direct 116 mg/dL
[2023-11-19 22:58] LABS: Testosterone Total 314 ng/dL (250-1100)
== END 2023-11-15 08:26 | disposition home or self-care (01) ==
LOC: ANHGOSHLAB 08:26
PROVIDERS: PCP Family Medicine; Visit Provider Nurse Practitioner Family
DX: E78.5 Hyperlipidemia, unspecified (principal); I10 Essential (primary) hypertension; N52.9 Male erectile dysfunction, unspecified
CPT/HCPCS: 36415; 80053; 80061; 84403; 85025

== ENCOUNTER 2023-11-29 08:17 | Outpatient (CLI) | payer OTHER, SELFPAY ==
[2023-11-29 10:34] LABS: Hepatitis B Surface Antigen Negative (Negative)
[2023-11-29 10:40] LABS: HAV RESULT Negative (Negative); Hepatitis B Core IgM Result Negative (Negative)
[2023-11-29 10:52] LABS: Hepatitis C Virus Antibody Negative (Negative)
== END 2023-11-29 08:18 | disposition home or self-care (01) ==
LOC: ANHLAB 08:18
PROVIDERS: PCP Family Medicine; Visit Provider Nurse Practitioner Family
DX: R74.8 Abnormal levels of other serum enzymes (principal)
CPT/HCPCS: 36415; 80074

== ENCOUNTER 2023-12-02 14:47 | Outpatient (CLI) | payer OTHER, SELFPAY ==
[2023-12-02 15:41] LABS: Alanine Aminotransferase 159 U/L (6-50); Albumin Level 4.7 g/dL (3.5-5.1); Alkaline Phosphatase 63 U/L (38-126); Aspartate Amino Transferase 66 U/L (17-59); Bilirubin,Total 0.9 mg/dL (0.2-1.3); Prothrombin Time 13.3 Seconds (11.1-14.7)
[2023-12-02 15:46] LABS: Immunoglobulin G 1184 mg/dL (700-1600)
[2023-12-02 15:53] LABS: Iron 99 ug/dL (49-181)
[2023-12-02 16:02] LABS: Percent Iron Saturation 26 % (20-50)
[2023-12-02 16:39] LABS: Hepatitis B Surface Antigen Negative (Negative)
[2023-12-02 16:57] LABS: Hepatitis B Surface Anti Res Negative
[2023-12-04 09:28] LABS: Hepatitis A Antibody Total NON-REACTIVE (NON-REACTIVE); Hepatitis B Core Ab Total NON-REACTIVE (NON-REACTIVE)
[2023-12-05 07:04] LABS: Alpha-1-Antitrypsin, QN 174 mg/dL (83-199)
[2023-12-07 05:49] LABS: Actin Antibody (IgG) <20 U (<20)
[2023-12-07 21:14] LABS: LKM 1 Antibody <=20.0 U (<=20.0)
[2023-12-11 09:44] LABS: GGT 46 U/L (3-95)
[2023-12-13 15:44] LABS: ALT 103 U/L (9-46); Alpha-2-Macroglobulin 131 mg/dL (106-279); Apolipoprotein A1 149 mg/dL (94-176); Fibrosis Score 0.13; Fibrosis Stage F0; GGT 46 U/L (3-95); Haptoglobin 116 mg/dL (43-212); Necroinflammat Act Grade A1-A2; Reference ID 5183881; Total Bilirubin 0.5 mg/dL (0.2-1.2)
[2023-12-13 16:59] LABS: Immunoglobulin A 455 mg/dL (47-310); TTG IGA AB <1.0 U/mL
== END 2023-12-02 14:48 | disposition home or self-care (01) ==
PROVIDERS: PCP Family Medicine; Visit Provider Nurse Practitioner
DX: K70.0 Alcoholic fatty liver (principal); R74.8 Abnormal levels of other serum enzymes; K74.60 Unspecified cirrhosis of liver
CPT/HCPCS: 36415; 80076; 81596; 82103; 82728; 82784; 82977; 83540; 83550; 85610; 86038; 86039; 86364; 86376; 86704; 86706; 86708; 87340

== ENCOUNTER 2023-12-07 07:38 | Outpatient (CLI) | payer OTHER, SELFPAY ==
--- NOTE | ~2023-12-07 | US_ITS ---
Limited Abdominal Sonogram: Real-time sonographic imaging of the right upper quadrant was performed. Clinical History: Abnormal serum enzyme levels Findings: The liver appears echogenic, with no evidence of mass lesion or bile duct dilatation. Main portal vein demonstrates normal direction of flow. The gallbladder is absent, compatible with prior cholecystectomy. The common bile duct measures 5 mm. The visualized pancreas, aorta, and IVC are unr emarkable. Impression: Diffuse fatty infiltration of liver. Reviewed, dictated and finalized at location M. Impression: Diffuse fatty infiltration of liver.
== END 2023-12-07 07:39 | disposition home or self-care (01) ==
PROVIDERS: PCP Family Medicine; Visit Provider Nurse Practitioner Family
DX: R74.8 Abnormal levels of other serum enzymes (principal); K76.0 Fatty (change of) liver, not elsewhere classified
CPT/HCPCS: 76705

== ENCOUNTER 2023-12-21 09:35 | Outpatient (CLI) | payer OTHER, SELFPAY | END 2023-12-21 09:36 | disposition home or self-care (01) | LOC: ANHLAB 09:38 | PROVIDERS: PCP Family Medicine; Visit Provider Nurse Practitioner | DX: K70.0 Alcoholic fatty liver (principal); R74.8 Abnormal levels of other serum enzymes | CPT/HCPCS: 36415; 83520; 84443 ==

== ENCOUNTER 2024-11-20 09:15 | Outpatient (CLI) | payer OTHER, SELFPAY ==
--- OUTSIDE RECORDS SUMMARY | 2024-11-20 09:42 | XMS_ITS | Encounter Summary ---
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 Gender Identity Not on file Sexual Orientation Not on file documented as of this encounter Plan of Treatment Not on file documented as of this encounter Procedures Procedure Name Priority Date/Time Associated Diagnosis Comments SCAN - LABS 11/15/2023 documented in this encounter Results * SCAN - LABS (11/15/2023) us Provider Scanning Final Result documented in this encounter Visit Diagnoses Not on filedocumented in this encounter Care Teams Edi Analyst Relationship Specialty Start Date End Date Hannah Hernandez MD [address] [facility] [place] [address] PCP - General Family Practice 11/23/23 documented as of this encounter
--- OUTSIDE RECORDS SUMMARY | 2024-11-20 09:42 | XMS_ITS | Encounter Summary ---
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 Gender Identity Not on file Sexual Orientation Not on file documented as of this encounter Plan of Treatment Not on file documented as of this encounter Procedures Procedure Name Priority Date/Time Associated Diagnosis Comments SCAN - RADIOLOGY/IMAGING 05/26/2020 documented in this encounter Results * SCAN - RADIOLOGY/IMAGING (05/26/2020) Anatomical Region Laterality Modality Other us Provider Scanning Final Result documented in this encounter Visit Diagnoses Not on filedocumented in this encounter Care Teams Panel Wirer Relationship Specialty Start Date End Date Hannah Hernandez MD [address] [facility] [place] [address] [facility] [address] PCP - General Family Practice 11/23/23 documented as of this encounter
--- OUTSIDE RECORDS SUMMARY | 2024-11-20 09:42 | XMS_ITS | Encounter Summary ---
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 Gender Identity Not on file Sexual Orientation Not on file documented as of this encounter Plan of Treatment Not on file documented as of this encounter Procedures Procedure Name Priority Date/Time Associated Diagnosis Comments SCAN - RADIOLOGY/IMAGING 12/07/2023 documented in this encounter Results * SCAN - RADIOLOGY/IMAGING (12/07/2023) Anatomical Region Laterality Modality Other us Provider Scanning Final Result documented in this encounter Visit Diagnoses Not on filedocumented in this encounter Care Teams Client Strategist Relationship Specialty Start Date End Date Hannah Hernandez MD [address] [facility] [facility] [place] [address] PCP - General Family Practice 11/23/23 documented as of this encounter
--- OUTSIDE RECORDS SUMMARY | 2024-11-20 09:42 | XMS_ITS | Clinical Summary ---
Author Organization [facility] Address [address] [place] [address] Care Team Providers Care Rehab Spec Name Role Phone Hannah Hernandez MD Primary Care Provider Allergies No known active allergies Medications RABEprazole DR (ACIPHEX) 20 mg EC tablet Take 1 tablet (20 mg total) by mouth daily Active losartan-hydroCH LOROthiazide (HYZAAR) 50-12.5 mg per tablet Take 1 tablet by mouth daily Active Active Problems Problem Noted Date Diagnosed Date Elevated liver enzymes 01/10/2024 Assessment & Plan (01/10/2024 9:48 AM [facility]): Patient with transaminitis dating back to [id number]. Etiology unclear at this time. He was drinking heavily (history of 70 beers daily) but stopped all alcohol use on 11/17/23. His most recent liver enzymes continue to remain elevated even with the cessation of alcohol. He has gained about 50 lbs since he was around 17 years old and has metabolic syndrome with HTN, HLD, obesity so transaminitis may be due to hepatic steatosis. I will obtain complete serology workup to rule out all causes of chronic liver disease. He has already had an extensive workup done and results so far were unremarkable except for elevated AMA. I will repeat AMA to confirm. If this remains elevated, will obtain MRI/MRCP. Patient to undergo FibroScan today to evaluate for hepatic steatosis and fibrosis. Patient underwent US locally, will ask nurse to obtain results. I explained to patient that he may need additional testing and/or liver biopsy. In the meantime, he is to remain 100% abstinent and work on weight loss. We discussed the importance of weight loss regardless of whether steatosis is seen given history of HTN, HLD, and obesity. If steatosis is noted on imaging and/or FibroScan, he is agreeable to meeting with floor nurse. Can also consider addition of pharmacologic therapy if fibrosis is seen. We also discussed smoking cessation. He should work on increasing physical activity as well. He will return to clinic in 1 year or sooner if needed. Encounters Date Type Department Care Team Description 08/30/2024 Results Follow-Up [facility] Medicine Gastroenterology [address] [facility] [address] [place] [address] [place] [address] Salma Ochoa NP Hepatic function panel 08/29/2024 8:35 AM CDT Lab [facility] [address] [place] [address] Elevated liver enzymes from Last 3 Months Social History Tobacco Use Types Packs/Day Years Used Date Smoking Tobacco: Every Day Cigarettes Tobacco Cessation:Ready to Q uit: Not Asked; Counseling Given: Not Answered AUDIT-C Answer Date Recorded Q1: How often do you have a drink containing alcohol? Never 01/10/2024 Q2: How many drinks containi ng alcohol do you have on a typical day when you are drinking? Patient does not drink Q3: How often do you have si x or more drinks on one occasion? Never 01/10/2024 Sex and Gender Information Value Date Recorded Sex Assigned at Not on file Legal Sex Male 2:03 PM [employer] Gender Identity Not on file Sexual Orientation Not on file Obstetrics History Last Filed Vital Signs Vital Sign Reading Time Taken Comments Blood Pressure 112/74 01/10/2024 9:01 AM [facility] Pulse 73 01/10/2024 9:01 AM [facility] Temperature 36.7 C (98 F) 01/10/2024 9:01 AM [facility] Respiratory Rate 14 01/10/2024 9:01 AM [facility] Oxygen Saturation 96% 01/10/2024 9:01 AM [facility] Inhaled Oxygen Concentration - - Weight 102.9 kg (226 lb 12.8 oz) 01/10/2024 9:01 AM [facility] Height 188 cm (6' 2) 01/10/2024 9:01 AM [facility] Body Mass Index 29.12 01/10/2024 9:01 AM [facility] Plan of Treatment Health Maintenance Due Date Last Done Comments Colon Cancer Screening-Colonoscopy 1974 Depression Screening 1974 Hepatitis C Screening 1974 Prostate Cancer Screening-PSA 1974 Hepatitis B Screening 1992 Regular Well Visit/Exam 18-64 1992 Pneumococcal vaccine <65 (1 of 2 - PCV) 1993 DTaP/Tdap/Td Vaccine (2 - Td or Tdap) 10/29/2009, 10/30/1999 Zoster Vaccine (1 of 2) 2024 Covid-19 Vaccine ( season) 2024 02/22/2021, 05/23/2020, 05/02/2020 Influenza Vaccine (#1) 2024 Procedures Procedure Name Priority Date/Time Associated Diagnosis Comments HEPATIC FUNCTION PANEL Routine 08/29/2024 8:57 AM CDT Elevated liver enzymes from Last 3 Months Results * Hepatic function panel (08/29/2024 8:57 AM CDT) Bilirubin, total 0.5 0.1 - 1.2 mg/dL Bilirubin, direct <0.2 0.1 - 0.3 mg/dL [facility] Protein, pl 7.5 6.5 - 8.5 g/dL [facility] Albumin 4.3 3.5 - 5.0 g/dL [facility] Alk phos 72 40 - 130 Units/L [facility] ALT 28 7 - 55 Units/L [facility] AST 19 10 - 50 Units/L [facility] Blood 08/29/2024 8:57 AM CDT 08/29/2024 9:30 AM CDT us Salma Ochoa NP LAB BLOOD ORDERABLES Fin al Result [facility] [address] [facility]. Department [place] [address] from Last [address] [place] [address] [place] [id number] Care Teams Rehab Spec Relationship Specialty Start Date End Date Hannah Hernandez MD [address] [place] [address] [address] PCP - General Family Practice 11/23/23
[2024-11-20 13:05] LABS: Hematocrit 47.8 % (42.0-52.0); Hemoglobin 15.9 g/dL (14.0-18.0); Immature Granulocyte Percent A 0.6 % (0-0.5); Lymphocytes Absolute Auto 2.56 K/mm3 (0.9-3.2); Mean Corpuscular HGB Conc 33.3 g/dl (32-36); Mean Corpuscular Hemoglobin 29.7 pg (26-34); Mean Corpuscular Volume 89.2 fl (80-100); Nucleated Red Blood Cells Absolute Auto 0.000 K/mm3 (0.0-0.012); Nucleated Red Blood Cells Perc 0.0 % (0.0-0.2); Platelet Count Result 255 k/mm3 (150-375); Red Blood Count 5.36 M/mm3 (4.6-6.20); White Blood Count 8.4 K/mm3 (4.5-10.0)
[2024-11-20 13:17] LABS: Alanine Aminotransferase 36 U/L (6-50); Albumin Level 4.5 g/dL (3.5-5.1); Alkaline Phosphatase 63 U/L (38-126); Anion Gap 9 mmol/L (4-12); Aspartate Amino Transferase 48 U/L (17-59); Bilirubin,Total 0.7 mg/dL (0.2-1.3); Blood Urea Nitrogen 14 mg/dL (9-20); Calcium 9.1 mg/dL (8.4-10.2); Carbon Dioxide 25 mmol/L (22-30); Chloride 104 mmol/L (98-107); Cholesterol 163 mg/dL (0-200); Estimated Glomerular Filt Rate > 60; Glucose 100 mg/dL (65-110); HDL Direct 42 mg/dL; Potassium 4.0 mmol/L (3.4-5.0); Sodium 138 mmol/L (137-145); Total Protein 7.8 g/dL (6.3-8.2); Triglycerides 134 mg/dL (<150)
[2024-11-20 13:45] LABS: Thyroid Stimulating Hormone Reflex 1.030 uIU/mL (0.465-4.68)
[2024-11-20 13:53] LABS: Prostate Specific Antigen 1.0 ng/mL (< OR = 4.0)
== END 2024-11-20 09:16 | disposition home or self-care (01) ==
LOC: ANHGOSHLAB 09:16
PROVIDERS: PCP Nurse Practitioner Family; Visit Provider Nurse Practitioner Family
DX: E78.5 Hyperlipidemia, unspecified (principal); E55.9 Vitamin D deficiency, unspecified; I10 Essential (primary) hypertension; Z12.5 Encounter for screening for malignant neoplasm of prostate
CPT/HCPCS: 36415; 80053; 80061; 82306; 84153; 84443; 85025; G0103